=== PATIENT | female | born 1995 | race Caucasian/White ===

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

== ENCOUNTER 2017-01-12 15:53 | Observation (INO) | payer MEDICAID ==
[~2017-01-12] VITALS: Ht 162.6 cm; Wt 80.0 kg
[2017-01-12] MEDS ORDERED: BETAMETHASONE 6 MG/ML, 5ML IM ONE ×2 (16:15→16:30)
[2017-01-12] MEDS ORDERED: PLEASE ENTER HEIGHT AND WEIGHT MC SCH (16:30)
[2017-01-12 16:34] VITALS: BP 118/73
[2017-01-12] MEDS ORDERED: LACTATED RINGERS 500 ML IVBOLUS ONE (17:30)
[2017-01-12] MEDS: LACTATED RINGERS 1,000 ML IV SCH ×2 (17:40→23:20)
[2017-01-12] MEDS ORDERED: PENICILLIN GK 5,000,000 UNITS in DEXTROSE 5% 100 ML IVPB ONE (19:00)
[2017-01-12] MEDS: PENICILLIN GK 2,500,000 UNITS in DEXTROSE 5% 100 ML IVPB SCH (23:15)
[2017-01-13] MEDS: PENICILLIN GK 2,500,000 UNITS in DEXTROSE 5% 100 ML IVPB SCH ×3 (03:06→12:00)
[2017-01-13] MEDS: LACTATED RINGERS 1,000 ML IV SCH (04:57)
[2017-01-13] MEDS ORDERED: BETAMETHASONE 6 MG/ML, 5ML IM ONE ×2 (14:44→16:30)
== END 2017-01-13 15:30 | disposition home or self-care (01) ==
LOC: LDOP 15:53 → LDIP 17:19
PROVIDERS: ADMIT Obstetrics & Gynecology; ATTEND Obstetrics & Gynecology
DX: O60.03 Preterm labor without delivery, third trimester (principal); O99.513 Diseases of the respiratory system complicating pregnancy, third trimester; J45.909 Unspecified asthma, uncomplicated; Z3A.32 32 weeks gestation of pregnancy; Z80.41 Family history of malignant neoplasm of ovary; Z83.3 Family history of diabetes mellitus; Z67.90 Unspecified blood type, Rh positive
CPT/HCPCS: 36415; 59025; 76805; 76815; 81001; 85025; 87081; 87086; 96361; 96365; 96366; 96372; 96375; G0378; J0702; J2540; J7120; 96360

== ENCOUNTER 2017-02-08 14:17 | Outpatient (CLI) | payer MEDICAID ==
[~2017-02-08] VITALS: Ht 162.6 cm; Wt 78.6 kg
[2017-02-08 14:41] VITALS: BP 122/65
[2017-02-08] MEDS ORDERED: PREN1TAB60 PO (14:41)
[2017-02-21] MEDS ORDERED: IBUP-1222 PO (10:54)
[2017-02-21] MEDS ORDERED: OXYC-302 PO (10:55)
[2017-02-21] MEDS ORDERED: DOCU-131 PO (10:56)
== END 2017-02-08 16:25 | disposition home or self-care (01) ==
LOC: LDOP 14:17
PROVIDERS: ATTEND Obstetrics & Gynecology
DX: O42.913 Preterm premature rupture of membranes, unspecified as to length of time between rupture and onset of labor, third trimester (principal); O62.9 Abnormality of forces of labor, unspecified; O26.893 Other specified pregnancy related conditions, third trimester; O99.513 Diseases of the respiratory system complicating pregnancy, third trimester; R11.0 Nausea; R10.9 Unspecified abdominal pain; J45.909 Unspecified asthma, uncomplicated; Z3A.35 35 weeks gestation of pregnancy
CPT/HCPCS: 59025; 89060; 99211; G0463; Q0114